=== PATIENT | female | born 1975 | race Caucasian/White ===

== ENCOUNTER 2016-09-11 16:50 | Emergency (ER) | payer MEDICAID ==
[~2016-09-11] VITALS: Ht 160 cm; Wt 95.5 kg
[~2016-09-11 16:50] MED LIST: antibiotic; ibuprofen
[2016-09-11 16:53] VITALS: Ht 160 cm; Wt 95.5 kg
--- NOTE | 2016-09-11 17:39 | ERD ---
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 The patient presents with palpitations today that lasted approximately 30 minutes this morning. She states that she woke up and started to have palpitations. She describes persistent palpitations without chest pain or pleuritic pain or shortness of breath. This lasted approximately 30 minutes and completely resolved. She does note menorrhagia in the past but no history of anemia. She denies any exertional symptoms chest pain or shortness of breath. No fevers or chills, no calf swelling or pain. No abdominal pain nausea vomiting or diarrhea. Complete resolution of symptoms currently. No recent fevers, weight changes weight gain or weight loss. ROS All systems reviewed and are negative except as per history of present illness. Medications Home Meds Discontinued Reported Medications [antibiotic] No Conflict Check 06/04/13 [ibuprofen] No Conflict Check 06/04/13 Allergies Allergies: Coded Allergies: No Known Allergy (Verified , 09/11/16) PMhx/Soc History of Surgery: Yes (c section) Anesthesia Reaction: No Hx Neurological Disorder: No Hx Respiratory Disorders: No Hx Cardiac Disorders: No Hx Psychiatric Problems: No Hx Miscellaneous Medical Probl: Yes (2 MISCARRIAGES) Hx Alcohol Use: No Hx Substance Use: No Hx Tobacco Use: No Smoking Status: Never smoker FmHx Family History: No diabetes Physical Exam Vitals Vital Signs Date Time Temp Pulse Resp B/P Pulse Ox O2 Delivery O2 Flow Rate FiO2 09/11/16 17:14 99.5 09/11/16 16:53 100.1 86 20 123/77 96 Physical Exam General: Well developed, well nourished, no acute distress Head: Normocephalic, atraumatic. Eyes: Pupils equally reactive, EOM intact ENT: Moist mucous membranes Neck: Supple, no lymphadenopathy Respiratory: Lungs clear bilaterally, no distress Cardiovascular: RRR, no murmurs, rubs, or gallops Abdominal: Soft, non-tender, non-distended, no peritoneal signs : Deferred MSK: No edema, no unilateral swelling, 5/5 strength Neurologic: Alert and oriented, moving all extremities, normal speech, no focal weakness, no cerebellar signs Skin: No rash Psych: Normal mood Result Diagram: 09/11/16 2821 Results 24 hrs Laboratory Tests Test 09/11/16 17:25 White Blood Count 12.810^3/ul Red Blood Count 4.3210^6/ul Hemoglobin 11.8g/dl Hematocrit 36.1% Mean Corpuscular Volume 83.6fl Mean Corpuscular Hemoglobin 27.3pg Mean Corpuscular Hemoglobin Concent 32.7g/dl Red Cell Distribution Width 13.7% Platelet Count 63125^3/UL Mean Platelet Volume 9.6fl Neutrophils % 69.1% Lymphocytes % 22.0% Monocytes % 6.6% Eosinophils % 1.6% Basophils % 0.3% Nucleated Red Blood Cells % 0.0/100WBC Neutrophils # 8.910^3/ul Lymphocytes # 2.810^3/ul Monocytes # 0.810^3/ul Eosinophils # 0.210^3/ul Basophils # 0.010^3/ul Nucleated Red Blood Cells # 0.010^3/ul Serum HCG, Qualitative NEGATIVE Procedures/MDM EKG, MONITORS, & DIAGNOSTIC IMAGING: EKG: I reviewed and interpreted a 12-lead EKG. Rhythm: Normal sinus rhythm Ectopy: None Intervals: No abnormalities, normal QRS and QTC, no Brugada ST segments: No elevations or depressions T waves: No contiguous inversions LAB INTERPRETATION: No evidence of anemia or MEDICAL DECISION MAKING: The patient has nonspecific palpitations with complete resolution. The patient is asymptomatic and resting comfortably. The patient meets the PERC RULE out criteria. Thus, less than 2% risk of pulmonary embolism with better alternative diagnosis. No indication for d-dimer or CT pulmonary angiogram at this time. The patient does have a history of menorrhagia will benefit from a CBC to rule out anemia, hCG to rule out . The patient has no chest pain, no pleuritic pain, no exertional symptoms. I do not believe this is consistent with ACS, arrhythmia or thyroid dysfunction. ER COURSE: The patient's laboratory testing and EKG are normal. The patient continues to be asymptomatic and is otherwise well-appearing, outpatient follow-up is appropriate. The patient may require Holter symptoms persist. Outpatient thyroid testing would also be reasonable. I kept the patient and/or family informed of laboratory and diagnostic imaging results throughout the emergency room course. DISPOSITION PLAN: We discussed follow up with the patient's primary care doctor within 24 to 48 hours as needed. We also discussed return to the emergency room for worsening symptoms or worsening condition. Outpatient referral: None required Departure Diagnosis: Primary Impression: Palpitations Condition: KIERA Ware MD Sep 11, 2016 17:39
[2016-09-11 17:41] LABS: BASOPHILS % 0.3 % (0.0-2.0); EOSINOPHILS # 0.2 10^3/ul (0.0-0.5); EOSINOPHILS % 1.6 % (0.0-7.0); HEMATOCRIT 36.1 % (37.0-47.0); HEMOGLOBIN 11.8 g/dl (12.0-16.0); LYMPHOCYTES # 2.8 10^3/ul (0.8-2.9); MEAN CORPUSCULAR HEMOGLOBIN 27.3 pg (29.0-33.0); MEAN CORPUSCULAR HGB CONC 32.7 g/dl (32.0-37.0); MEAN CORPUSCULAR VOLUME 83.6 fl (82.0-101.0); MEAN PLATELET VOLUME 9.6 fl (7.4-10.4); MONOCYTE # 0.8 10^3/ul (0.3-0.9); MONOCYTES % 6.6 % (0.0-11.0); NEUTROPHIL # 8.9 10^3/ul (1.6-7.5); NEUTROPHILS % 69.1 % (39.0-77.0); PLATELET COUNT 292 10^3/UL (140-415); RED BLOOD COUNT 4.32 10^6/ul (4.20-5.40); RED CELL DISTRIBUTION WIDTH 13.7 % (11.5-14.5); WHITE BLOOD COUNT 12.8 10^3/ul (4.8-10.8)
[2016-09-11 18:36] VITALS: BP 120/75; PULSE 74; RESP 18; TEMP 98.9
== END 2016-09-11 18:36 | disposition home or self-care (01) ==
LOC: E/R 16:50
DX: R00.2 Palpitations (principal)
CPT/HCPCS: 84703; 85025; 93005

== ENCOUNTER 2016-11-16 16:37 | Emergency (ER) | payer SELFPAY ==
[~2016-11-16] VITALS: Ht 165.1 cm; Wt 98.5 kg
[2016-11-16 16:40] VITALS: Ht 165.1 cm; Wt 98.5 kg
[2016-11-16] MEDS ORDERED: LIDOCAINE/MYLANTA 40 ML BTL PO STA (19:16)
[2016-11-16] MEDS ORDERED: ONDANSETRON 4 MG INJ IV STA (19:16)
[2016-11-16] MEDS ORDERED: BELLADONNA/PHENOBARBITAL TAB PO STA (19:16)
[2016-11-16] MEDS ORDERED: SOD CHLORIDE 0.9% 1,000 ML IV STA (19:16)
[2016-11-16] MEDS ORDERED: KETOROLAC 15 MG INJ IV STA (19:16)
[2016-11-16 19:38] LABS: BASOPHILS % 0.3 % (0.0-2.0); EOSINOPHILS # 0.4 10^3/ul (0.0-0.5); EOSINOPHILS % 2.6 % (0.0-7.0); HEMATOCRIT 37.4 % (37.0-47.0); HEMOGLOBIN 12.2 g/dl (12.0-16.0); LYMPHOCYTES # 3.5 10^3/ul (0.8-2.9); LYMPHOCYTES % 24.2 % (15.0-51.0); MEAN CORPUSCULAR HEMOGLOBIN 27.4 pg (29.0-33.0); MEAN CORPUSCULAR HGB CONC 32.6 g/dl (32.0-37.0); MEAN PLATELET VOLUME 9.9 fl (7.4-10.4); MONOCYTES % 6.6 % (0.0-11.0); NEUTROPHILS % 65.9 % (39.0-77.0); PLATELET COUNT 305 10^3/UL (140-415); RED BLOOD COUNT 4.45 10^6/ul (4.20-5.40); WHITE BLOOD COUNT 14.6 10^3/ul (4.8-10.8)
[2016-11-16 19:58] LABS: ALANINE AMINOTRANSFERASE 25 IU/L (13-69); ALBUMIN 4.1 g/dl (3.3-4.9); ALBUMIN/GLOBULIN RATIO 1.13; ALKALINE PHOSPHATASE 121 IU/L (42-121); ANION GAP 15 (8-16); ASPARTATE AMINO TRANSFERASE 19 IU/L (15-46); BLOOD UREA NITROGEN 14 mg/dl (7-20); CARBON DIOXIDE 28 mmol/L (21-31); CHLORIDE 101 mmol/L (97-110); CREATININE 0.85 mg/dl (0.44-1.00); GLUCOSE 102 mg/dl (70-220); POTASSIUM 3.7 mmol/L (3.5-5.1); SODIUM 140 mmol/L (135-144); TOTAL PROTEIN 7.7 g/dl (6.1-8.1)
[2016-11-16 20:00] LABS: ADD UMIC YES; UR ASCORBIC ACID NEGATIVE (NEGATIVE); UR BILIRUBIN (Dip) NEGATIVE (NEGATIVE); UR BLOOD (Dip) 1+ mg/dL (NEGATIVE); UR CLARITY SLIGHTLY CLOUDY (CLEAR); UR COLOR YELLOW (YELLOW); UR GLUCOSE (Dip) NEGATIVE (NEGATIVE); UR KETONES (Dip) NEGATIVE (NEGATIVE); UR LEUKOCYTE ESTERASE (Dip) 2+ Leu/ul (NEGATIVE); UR NITRITE (Dip) NEGATIVE (NEGATIVE); UR RBC 5 /HPF (0-5); UR SPECIFIC GRAVITY (Dip) 1.017 (1.003-1.030); UR SQUAMOUS EPITHELIAL CELL FEW /HPF (FEW); UR TOTAL PROTEIN (Dip) NEGATIVE (NEGATIVE); UR UROBILINOGEN (Dip) NEGATIVE (NEGATIVE)
[2016-11-16 20:10] LABS: TROPONIN-I < 0.012 ng/ml (0.00-0.12)
--- NOTE | 2016-11-16 20:15 | RADRPT ---
PROCEDURE: Limited ultrasound of the gallbladder. CLINICAL INDICATION: 41 years of age, female. Abdominal pain. TECHNIQUE: Multiple real-time longitudinal and transverse images of the gallbladder and the bile d ucts were acquired utilizing a curved array transducer. Images were reviewed on a high-resolution [facility] workstation. COMPARISON: None available. FINDINGS: Pancreas: Not well seen due to bowel gas. Liver appearance: Mildly echogenic parenchyma Liver length: 17.7 cm Bile Ducts: No intrahepatic or extrahepatic biliary ductal dilatation. CBD: 0.1 cm. Gallbladder: Normal. Gallbladder wall measures 1.6 mm. Negative for gallstones. Main portal vein is patent with hepatopetal flow. Right kidney length: 9.4 cm. Right kidney appearance: Normal. Other: None. IMPRESSION: Mildly echogenic liver parenchyma may be due to hepatic steatosis. Negative for gallstones or evidence of biliary obstruction. RPTAT: HCTS Physician Horacio Date Time Electronically viewed and signed by Physician Horacio on 11/16/2016 20:14 /
[2016-11-16] MEDS ORDERED: IBUP-1542 PO (20:23)
[2016-11-16] MEDS ORDERED: CEPH-443 PO (20:23)
[2016-11-16 21:03] VITALS: BP 128/77; PULSE 69; RESP 18; TEMP 98.9
--- NOTE | 2016-11-16 21:30 | ERD ---
ER Documentation Chief Complaint Date/Time DATE: 11/16/16 TIME: 21:23 Chief Complaint CP AND UPPER BACK PAIN STARTING TODAY HPI 41-year-old woman complains of right upper quadrant abdominal pain radiating to the back 1 day for about 4 hours. She denies previous episodes. She denies fevers or chills, no blood per rectum, no melena, no chest pain or shortness of breath. Patient denies trauma. Patient denies vaginal discharge. ROS All systems reviewed and are negative except as per history of present illness. Medications Home Meds Active Scripts Ibuprofen* (Ibuprofen*) 600 Mg Tablet, 600 MG PO Q8 for PAIN AND/OR INFLAMMATION , #30 TAB Prov:RAUL ELY MD 11/16/16 Cephalexin* (Keflex*) 500 Mg Capsule, 500 MG PO QID for 7 Days, CAP Prov:RAUL ELY MD 11/16/16 Allergies Allergies: Coded Allergies: No Known Allergy (Verified , 09/11/16) PMhx/Soc Obesity History of Surgery: No Anesthesia Reaction: No Hx Neurological Disorder: No Hx Respiratory Disorders: No Hx Cardiac Disorders: No Hx Psychiatric Problems: No Hx Miscellaneous Medical Probl: No Hx Alcohol Use: No Hx Substance Use: No Hx Tobacco Use: No Smoking Status: Never smoker FmHx Family History: No diabetes Physical Exam Vitals Vital Signs Date Time Temp Pulse Resp B/P Pulse Ox O2 Delivery O2 Flow Rate FiO2 11/16/16 21:03 98.9 69 18 128/77 99 Room Air 11/16/16 16:40 99.1 88 22 136/79 99 Physical Exam GENERAL: Well-developed, well-nourished, well-hydrated, in no apparent distress , looks nontoxic in appearance HEENT: Moist mucous membranes, pink conjunctiva, no cervical spine tenderness or step-off deformities, no goiter, no jaundice or icterus, extraocular movements intact without pain. No submandibular induration, and no pharyngeal erythema NEURO: Alert and oriented 3, cranial nerves II through XII intact bilaterally, pupils equal round reactive to light, no focal deficits or facial asymmetry, sensation intact distally Strength 5/5 in upper and lower extremities bilaterally CARDIAC: Regular rate and rhythm, no murmurs rubs or gallops LUNGS: Clear bilaterally no wheezing crackles or stridor ABDOMEN: Mild right upper quadrant tenderness to touch no guarding or rigidity, no rebound, no psoas sign, no obturator sign SKIN: Warm and dry to touch, no abrasions, contusions, or hematomas, no lacerations, no ecchymosis, no target lesions, and without ulcers EXTREMITIES: No clubbing cyanosis or edema, calves are bilaterally symmetrical, no Homans sign, no popliteal cord sign. Distal pulses equal and bilateral PSYCH: Normal affect without agitation or irritability Result Diagram: 11/16/16191911/16/161919 Results 24 hrs Laboratory Tests Test 11/16/16 19:20 White Blood Count 14.610^3/ul Red Blood Count 4.4510^6/ul Hemoglobin 12.2g/dl Hematocrit 37.4% Mean Corpuscular Volume 84.0fl Mean Corpuscular Hemoglobin 27.4pg Mean Corpuscular Hemoglobin Concent 32.6g/dl Red Cell Distribution Width 14.0% Platelet Count 83678^3/UL Mean Platelet Volume 9.9fl Neutrophils % 65.9% Lymphocytes % 24.2% Monocytes % 6.6% Eosinophils % 2.6% Basophils % 0.3% Nucleated Red Blood Cells % 0.0/100WBC Neutrophils # (Manual) 9.610^3/ul Lymphocytes # 3.510^3/ul Monocytes # 1.010^3/ul Eosinophils # 0.410^3/ul Basophils # 0.010^3/ul Nucleated Red Blood Cells # 0.010^3/ul Urine Color YELLOW Urine Clarity SLIGHTLY CLOUDY Urine pH 5.0 Urine Specific [place] 1.017 Urine Ketones NEGATIVEmg/dL Urine Nitrite NEGATIVEmg/dL Urine Bilirubin NEGATIVEmg/dL Urine Urobilinogen NEGATIVEmg/dL Urine Leukocyte Esterase 2+[place]/ul Urine Microscopic RBC 5/HPF Urine Microscopic WBC 21/HPF Urine Squamous Epithelial Cells FEW/HPF Urine Hemoglobin 1+mg/dL Urine Glucose NEGATIVEmg/dL Urine Total Protein NEGATIVEmg/dl Sodium Level 140mmol/L Potassium Level 3.7mmol/L Chloride Level 101mmol/L Carbon Dioxide Level 28mmol/L Anion Gap 15 Blood Urea Nitrogen 14mg/dl Creatinine 0.85mg/dl Glucose Level 102mg/dl Calcium Level 9.0mg/dl Total Bilirubin 0.0mg/dl Direct Bilirubin 0.00mg/dl Indirect Bilirubin 0.0mg/dl Aspartate Amino Transf (AST/SGOT) 19IU/L Alanine Aminotransferase (ALT/SGPT) 25IU/L Alkaline Phosphatase 121IU/L Troponin I < 0.012ng/ml Total Protein 7.7g/dl Albumin 4.1g/dl Globulin 3.60g/dl Albumin/Globulin Ratio 1.13 Lipase 73U/L Current Medications Medications (Trade) Dose Ordered Sig/Koko Route PRN Reason Start Time Stop Time Status Last Admin Dose Admin Sodium Chloride (NS) 1,000 ml @ 1,000 mls/hr Q1H STAT IV 11/16/16 19:16 11/16/16 20:15 DC 11/16/16 20:04 Ondansetron HCl (Zofran Inj) 4 mg ONCE STAT IV 11/16/16 19:16 11/16/16 19:17 DC 11/16/16 20:03 Miscellaneous Medication (Gi Cocktail (2)) 40 ml ONCE STAT PO 11/16/16 19:16 11/16/16 19:17 DC 11/16/16 20:03 Belladonna/ Phenobarbital () 2 tab ONCE STAT PO 11/16/16 19:16 11/16/16 19:17 DC 11/16/16 20:03 Ketorolac Tromethamine (Toradol) 15 mg ONCE STAT IV 11/16/16 19:16 11/16/16 19:17 DC 11/16/16 20:04 Procedures/MDM IV line was established patient was placed on outdoor adventure [employer] rhythm strip revealed a sinus rhythm at about 80 bpm with upright P and T waves. Patient was afebrile. EKG performed, read by me: 87 bpm, normal sinus rhythm, normal axis, no acute ST segment changes, narrow QRS complex, with good R-wave progression in precordial leads. Gallbladder ultrasound was performed, no acute cholecystitis or cholelithiasis was noted. Please refer to radiologist dictation for full report. I administered 1 L normal saline intravenously, Toradol 15 mg IV, GI cocktail 30 cc p.o., Zofran 4 mg IV with good response. CBC reveals a leukocytosis of 15, electrolytes normal, liver function tests normal, troponin negative. Urinalysis was consistent with a urinary tract infection. Abdominal examination was repeated by me and she has no further tenderness to touch and remains without guarding or rigidity. Patient's workup here was fairly unremarkable although she does have a UTI and will be treated as an outpatient with oral antibiotics. Given her right upper quadrant abdominal pain today I did tell her return in 8 hours for repeat abdominal examination and reevaluation or earlier if she develops worsening pain, fever, vomiting. Differential diagnoses considered, included but not limited to acute coronary syndrome, pulmonary embolism, aortic dissection, abdominal aortic aneurysm, sepsis, stroke, meningitis, encephalitis, pneumonia, appendicitis, cholecystitis , bowel obstruction, pyelonephritis, nephrolithiasis, cystitis, as well as metabolic, hematologic, and electrolyte abnormalities. As well as abscess, cellulitis, fractures, and dislocations. Patient feels much better at this time, and vital signs are normal, symptoms have improved. I did give strict instructions to return to the ED if symptoms continue or worsen, patient will otherwise follow-up with primary care physician. Patient understood instructions and agreed to plan. Disclaimer: Inadvertent spelling and grammatical errors are likely due to EHR/ dictation software use and do not reflect on the overall quality of patient care. Also, please note that the electronic time recorded on this note does not necessarily reflect the actual time of the patient encounter. Departure Diagnosis: Primary Impression: UTI (urinary tract infection) Urinary tract infection type: acute cystitis Hematuria presence: without hematuria Qualified Code: N30.00 - Acute cystitis without hematuria Additional Impression: Abdominal pain Abdominal location: right upper quadrant Qualified Code: R10.11 - Right upper quadrant abdominal pain Condition: Good Patient Instructions: Bladder Infection, Female (Adult) RAUL ELY MD Nov 16, 2016 21:30
== END 2016-11-16 21:04 | disposition home or self-care (01) ==
LOC: E/R 16:37
DX: N30.00 Acute cystitis without hematuria (principal)
CPT/HCPCS: 36415; 76705; 80053; 81001; 83690; 84484; 85025; 93005; 96374; 96375; 99285; J1885; J2405; J7030

== ENCOUNTER 2017-01-14 01:13 | Emergency (ER) | payer SELFPAY ==
[~2017-01-14] VITALS: Ht 160 cm; Wt 96.7 kg
[~2017-01-14 01:13] MED LIST changes: +CEPH-443 PO; +IBUP-1542 PO; -antibiotic; -ibuprofen
[2017-01-14 01:16] VITALS: Ht 160 cm; Wt 96.7 kg
[2017-01-14] MEDS ORDERED: morphine 4 MG/ML VIAL IM STA (02:00)
[2017-01-14] MEDS ORDERED: ONDANSETRON (ODT) 4 MG TAB ODT STA (02:00)
[2017-01-14] MEDS ORDERED: IBUPROFEN 600 MG TAB PO ONE (02:00)
--- NOTE | 2017-01-14 03:08 | RADRPT ---
PROCEDURE: CT thoracic spine without contrast. CLINICAL INDICATION: Back pain. TECHNIQUE: CT scan of the thoracic spine was performed on a multi-detector high-resolution CT [facility]. Contiguous axial images were obtained without intravenous contrast. Coronal and sagittal ref ormatted images were also obtained. Images were reviewed on the PACS workstation. One or more of the following dose reduction techniques were used: - Automated exposure control. - Adjustment of the mA and/or kV according to patient size. - Use of iterative reconstruction technique. Exam CTD/vol = 30.10 mGy. Total exam DLP = 1261.65 mGy-cm. COMPARISON: None. FINDINGS: There is no acute fracture or subluxation. Thoracic vertebral body heights and alignment are otherw ise within normal limits. Intervertebral disk spaces are within normal limits. There is no central canal or neural foraminal stenosis. There is no paraspinal mass or collection. IMPRESSION: No acute fracture or subluxation. .Manuel Guaman MD, MD Date Time Electronically viewed and signed by .Manuel Guaman MD, MD on 01/14/2017 03:07 .T/
--- NOTE | 2017-01-14 03:08 | RADRPT ---
PROCEDURE: CT thoracic spine without contrast. CLINICAL INDICATION: Back pain. TECHNIQUE: CT scan of the thoracic spine was performed on a multi-detector high-resolution CT [facility]. Contiguous axial images were obtained without intravenous contrast. Coronal and sagittal ref ormatted images were also obtained. Images were reviewed on the PACS workstation. One or more of the following dose reduction techniques were used: - Automated exposure control. - Adjustment of the mA and/or kV according to patient size. - Use of iterative reconstruction technique. Exam CTD/vol = 30.10 mGy. Total exam DLP = 1261.65 mGy-cm. COMPARISON: None. FINDINGS: There is no acute fracture or subluxation. Thoracic vertebral body heights and alignment are otherw ise within normal limits. Intervertebral disk spaces are within normal limits. There is no central canal or neural foraminal stenosis. There is no paraspinal mass or collection. IMPRESSION: No acute fracture or subluxation. .Manuel Guaman MD, MD Date Time Electronically viewed and signed by .Manuel Guaman MD, MD on 01/14/2017 03:07 .T/
[2017-01-14] MEDS ORDERED: TRAM50TA2 PO (03:25)
[2017-01-14] MEDS ORDERED: ORPH100T PO (03:25)
[2017-01-14] MEDS ORDERED: IBUP-1542 PO (03:25)
--- NOTE | 2017-01-14 03:43 | ERD ---
ER Documentation Chief Complaint Chief Complaint upper back pain on/off x 2 mos worse today HPI This Is a 41-year-old female presents to the ER with mid back pain has been going on over the last 2 months. Patient states that back pain is severe and she feels as if her back is going to split open. Patient has been to her PCP and to the ER for this, however they are unable to find what is wrong with her. Patient denies any trauma she denies any heavy lifting. Patient states that she tried gabapentin however it does not work. Patient denies any fevers or chills. She denies any chest pain, shortness of breath or abdominal pain. ROS 12 point review of systems was done, all negative except per HPI. Medications Home Meds Active Scripts Orphenadrine Citrate (Norflex) 100 Mg Tablet.sa, 100 MG PO BID for 5 Days, TAB.SA Prov:ANTON LUNA 01/14/17 Ibuprofen* (Ibuprofen*) 600 Mg Tablet, 600 MG PO Q6 for 5 Days, TAB Prov:ANTON LUNA 01/14/17 Tramadol HCl (Tramadol HCl) 50 Mg Tablet, 50 MG PO Q4 Y for PAIN, #20 TAB Prov:ANTON LUNA 01/14/17 Ibuprofen* (Ibuprofen*) 600 Mg Tablet, 600 MG PO Q8 for PAIN AND/OR INFLAMMATION , #30 TAB Prov:RAUL ELY MD 11/16/16 Cephalexin* (Keflex*) 500 Mg Capsule, 500 MG PO QID for 7 Days, CAP Prov:RAUL ELY MD 11/16/16 Allergies Allergies: Coded Allergies: No Known Allergy (Verified , 09/11/16) PMhx/Soc Medical and Surgical Hx: pt denies Medical Hx History of Surgery: Yes (APPENDECTOMY) Anesthesia Reaction: No Hx Neurological Disorder: No Hx Respiratory Disorders: No Hx Cardiac Disorders: No Hx Psychiatric Problems: No Hx Miscellaneous Medical Probl: No Hx Alcohol Use: No Hx Substance Use: No Hx Tobacco Use: No Smoking Status: Never smoker Physical Exam Vitals Vital Signs Date Time Temp Pulse Resp B/P Pulse Ox O2 Delivery O2 Flow Rate FiO2 01/14/17 01:16 98.6 76 20 132/88 98 Physical Exam GENERAL: patient is crying secondary to pain CHEST: Clear to auscultation bilaterally. There are no rales, wheezes or rhonchi. HEART: Regular rate and rhythm. No murmurs, clicks, rubs or gallops. ABDOMEN: Soft, nontender and nondistended. Good bowel sounds. No rebound or guarding. No gross peritonitis. No gross organomegaly or masses. No Berrios sign or McBurney point tenderness. No pulsatile abdominal mass. BACK: No midline or flank tenderness. Tender to palpation from T6-T8. Tense paraspinal muscles. Negative leg raise test. No step- offs. EXTREMITIES: . Full range of motion. Grossly neurovascularly intact. NEURO: Alert and oriented. Results 24 hrs Current Medications Medications (Trade) Dose Ordered Sig/Koko Route PRN Reason Start Time Stop Time Status Last Admin Dose Admin Morphine Sulfate (morphine) 4 mg ONCE STAT IM 01/14/17 02:00 01/14/17 02:02 DC 01/14/17 02:08 Ibuprofen (Motrin) 600 mg ONCE ONCE PO 01/14/17 02:00 01/14/17 02:02 DC 01/14/17 02:08 Ondansetron HCl (Zofran Odt) 4 mg ONCE STAT ODT 01/14/17 02:00 01/14/17 02:02 DC 01/14/17 02:08 [place] [id number] Radiology Main Line: [phone] DIAGNOSTIC IMAGING REPORT Patient: LESTER CM : 1975 Age: 41 Sex: F MR #: [id number] DOS: 01/14/17 0000 Ordering MD: ANTON LUNA PA-C Location: [facility] Room/Bed: PROCEDURE: CT thoracic spine without contrast. CLINICAL INDICATION: Back pain. TECHNIQUE: CT scan of the thoracic spine was performed on a multi-detector high-resolution CT scanner. Contiguous axial images were obtained without intravenous contrast. Coronal and sagittal reformatted images were also obtained. Images were reviewed on the PACS workstation. One or more of the following dose reduction techniques were used: - Automated exposure control. - Adjustment of the mA and/or kV according to patient size. - Use of iterative reconstruction technique. Exam CTD/vol = 30.10 mGy. Total exam DLP = 1261.65 mGy-cm. COMPARISON: None. FINDINGS: There is no acute fracture or subluxation. Thoracic vertebral body heights and alignment are otherwise within normal limits. Intervertebral disk spaces are within normal limits. There is no central canal or neural foraminal stenosis. There is no paraspinal mass or collection. IMPRESSION: No acute fracture or subluxation. .Manuel Guaman MD, Date Time Electronically viewed and signed by .Manuel Guaman MD, on 01/14/2017 03:07 .T/ CC: ANTON LUNA Procedures/[facility] This is a 41-year-old female presents to the ER with a 2 month history of mid back pain. CT imaging was done, as patient stated she already had an x-ray which was normal, there is no evidence of masses, stenosis or bulging discs. She is afebrile and well-appearing suspicion for discitis or abscess is low. This patient for AAA, dissection is low. Patient does not have any pulsatile masses or abdominal pain. Her vital signs are stable, and her pain was completely controlled in the ER with 4 mg of morphine bupropion. Patient stated that she felt a lot better and was on any more pain upon discharge. I advised patient to follow-up with her primary care doctor to see an orthopedic doctor as soon as possible. I advised weight loss patient is obese, and this may be contributing to her back pain. I shared my medical decision making with the patient she understands and agrees with plan Departure Diagnosis: Primary Impression: Back pain Condition: Stable Patient Instructions: Back Pain (Acute Or Chronic) Additional Instructions: Llame al doctor MAANA y lissa abhi ELIER PARA DENTRO DE 1-2 COLLINS.Dgale a la secretaria que nosotros le instruimos hacer esta elier.Avise o llame si calabrese condicin se empeora antes de la elier. Regresa aqui si peor o no mejor. ANTON LUNA Jan 14, 2017 03:43
--- NOTE | 2017-01-14 03:43 | ERD ---
ER Documentation Chief Complaint Chief Complaint upper back pain on/off x 2 mos worse today HPI This Is a 41-year-old female presents to the ER with mid back pain has been going on over the last 2 months. Patient states that back pain is severe and she feels as if her back is going to split open. Patient has been to her PCP and to the ER for this, however they are unable to find what is wrong with her. Patient denies any trauma she denies any heavy lifting. Patient states that she tried gabapentin however it does not work. Patient denies any fevers or chills. She denies any chest pain, shortness of breath or abdominal pain. ROS 12 point review of systems was done, all negative except per HPI. Medications Home Meds Active Scripts Orphenadrine Citrate (Norflex) 100 Mg Tablet.sa, 100 MG PO BID for 5 Days, TAB.SA Prov:ANTON LUNA 01/14/17 Ibuprofen* (Ibuprofen*) 600 Mg Tablet, 600 MG PO Q6 for 5 Days, TAB Prov:ANTON LUNA 01/14/17 Tramadol HCl (Tramadol HCl) 50 Mg Tablet, 50 MG PO Q4 Y for PAIN, #20 TAB Prov:ANTON LUNA 01/14/17 Ibuprofen* (Ibuprofen*) 600 Mg Tablet, 600 MG PO Q8 for PAIN AND/OR INFLAMMATION , #30 TAB Prov:RAUL ELY MD 11/16/16 Cephalexin* (Keflex*) 500 Mg Capsule, 500 MG PO QID for 7 Days, CAP Prov:RAUL ELY MD 11/16/16 Allergies Allergies: Coded Allergies: No Known Allergy (Verified , 09/11/16) PMhx/Soc Medical and Surgical Hx: pt denies Medical Hx History of Surgery: Yes (APPENDECTOMY) Anesthesia Reaction: No Hx Neurological Disorder: No Hx Respiratory Disorders: No Hx Cardiac Disorders: No Hx Psychiatric Problems: No Hx Miscellaneous Medical Probl: No Hx Alcohol Use: No Hx Substance Use: No Hx Tobacco Use: No Smoking Status: Never smoker Physical Exam Vitals Vital Signs Date Time Temp Pulse Resp B/P Pulse Ox O2 Delivery O2 Flow Rate FiO2 01/14/17 01:16 98.6 76 20 132/88 98 Physical Exam GENERAL: patient is crying secondary to pain CHEST: Clear to auscultation bilaterally. There are no rales, wheezes or rhonchi. HEART: Regular rate and rhythm. No murmurs, clicks, rubs or gallops. ABDOMEN: Soft, nontender and nondistended. Good bowel sounds. No rebound or guarding. No gross peritonitis. No gross organomegaly or masses. No Berrios sign or McBurney point tenderness. No pulsatile abdominal mass. BACK: No midline or flank tenderness. Tender to palpation from T6-T8. Tense paraspinal muscles. Negative leg raise test. No step- offs. EXTREMITIES: . Full range of motion. Grossly neurovascularly intact. NEURO: Alert and oriented. Results 24 hrs Current Medications Medications (Trade) Dose Ordered Sig/Koko Route PRN Reason Start Time Stop Time Status Last Admin Dose Admin Morphine Sulfate (morphine) 4 mg ONCE STAT IM 01/14/17 02:00 01/14/17 02:02 DC 01/14/17 02:08 Ibuprofen (Motrin) 600 mg ONCE ONCE PO 01/14/17 02:00 01/14/17 02:02 DC 01/14/17 02:08 Ondansetron HCl (Zofran Odt) 4 mg ONCE STAT ODT 01/14/17 02:00 01/14/17 02:02 DC 01/14/17 02:08 [place] [id number] Radiology Main Line: [phone] DIAGNOSTIC IMAGING REPORT Patient: LESTER CM : 1975 Age: 41 Sex: F MR #: [id number] DOS: 01/14/17 0000 Ordering MD: ANTON LUNA PA-C Location: [facility] Room/Bed: PROCEDURE: CT thoracic spine without contrast. CLINICAL INDICATION: Back pain. TECHNIQUE: CT scan of the thoracic spine was performed on a multi-detector high-resolution CT scanner. Contiguous axial images were obtained without intravenous contrast. Coronal and sagittal reformatted images were also obtained. Images were reviewed on the PACS workstation. One or more of the following dose reduction techniques were used: - Automated exposure control. - Adjustment of the mA and/or kV according to patient size. - Use of iterative reconstruction technique. Exam CTD/vol = 30.10 mGy. Total exam DLP = 1261.65 mGy-cm. COMPARISON: None. FINDINGS: There is no acute fracture or subluxation. Thoracic vertebral body heights and alignment are otherwise within normal limits. Intervertebral disk spaces are within normal limits. There is no central canal or neural foraminal stenosis. There is no paraspinal mass or collection. IMPRESSION: No acute fracture or subluxation. .Manuel Guaman MD, Date Time Electronically viewed and signed by .Manuel Guaman MD, on 01/14/2017 03:07 .T/ CC: ANTON LUNA Procedures/[facility] This is a 41-year-old female presents to the ER with a 2 month history of mid back pain. CT imaging was done, as patient stated she already had an x-ray which was normal, there is no evidence of masses, stenosis or bulging discs. She is afebrile and well-appearing suspicion for discitis or abscess is low. This patient for AAA, dissection is low. Patient does not have any pulsatile masses or abdominal pain. Her vital signs are stable, and her pain was completely controlled in the ER with 4 mg of morphine bupropion. Patient stated that she felt a lot better and was on any more pain upon discharge. I advised patient to follow-up with her primary care doctor to see an orthopedic doctor as soon as possible. I advised weight loss patient is obese, and this may be contributing to her back pain. I shared my medical decision making with the patient she understands and agrees with plan Departure Diagnosis: Primary Impression: Back pain Condition: Stable Patient Instructions: Back Pain (Acute Or Chronic) Additional Instructions: Llame al doctor MAANA y lissa abhi ELIER PARA DENTRO DE 1-2 COLLINS.Dgale a la secretaria que nosotros le instruimos hacer esta elier.Avise o llame si calabrese condicin se empeora antes de la elier. Regresa aqui si peor o no mejor. ANTON LUNA Jan 14, 2017 03:43
[2017-01-14 04:18] VITALS: BP 122/67; PULSE 75; RESP 16; TEMP 99.1
== END 2017-01-14 04:23 | disposition home or self-care (01) ==
LOC: FTE 01:13
DX: M54.6 Pain in thoracic spine (principal)
CPT/HCPCS: 72128; 96372; 99285; J2270

== ENCOUNTER 2017-02-06 02:05 | Emergency (ER) | payer MEDICAID ==
[~2017-02-06] VITALS: Ht 162.6 cm; Wt 96.5 kg
[~2017-02-06 02:05] MED LIST changes: +ORPH100T PO; +TRAM50TA2 PO
[2017-02-06 02:07] VITALS: Ht 162.6 cm; Wt 96.5 kg
[2017-02-06] MEDS ORDERED: HYDR-902 PO (04:36)
[2017-02-06] MEDS ORDERED: METH750T93 PO (04:36)
[2017-02-06] MEDS ORDERED: IBUP800T25 PO (04:36)
--- NOTE | 2017-02-06 04:40 | ERD ---
ER Documentation Chief Complaint Chief Complaint back pain x 2 days, denies injury HPI This is a 41-year-old female complains of thoracic spine pain for the past 2 months. The patient's was seen here on January 14 and had a CAT scan of her thoracic spine which did not show any abnormality. Patient denies any trauma numbness or weakness. She was given a prescription for tramadol which she says is not helping. ROS All systems reviewed and are negative except as per history of present illness. Medications Home Meds Active Scripts Hydrocodone/Acetaminophen (Fonda 10-325 Tablet) 1 Each Tablet, 1 TAB PO Q6H Y for PAIN, #20 TAB Prov:RHONAKKOSJINASTOLOS A. DO 02/06/17 Methocarbamol* (Robaxin*) 750 Mg Tablet, 750 MG PO TID, #30 TAB Prov:LEKKOSJINASTOLOS A. DO 02/06/17 Ibuprofen* (Motrin*) 800 Mg Tab, 800 MG PO Q6H Y for PAIN AND OR ELEVATED TEMP, #30 TAB Prov:LEKKOSAPOSTOLOS A. DO 02/06/17 Orphenadrine Citrate (Norflex) 100 Mg Tablet.sa, 100 MG PO BID for 5 Days, TAB.SA Prov:ANTON LUNA 01/14/17 Ibuprofen* (Ibuprofen*) 600 Mg Tablet, 600 MG PO Q6 for 5 Days, TAB Prov:ANTON LUNA C 01/14/17 Tramadol HCl (Tramadol HCl) 50 Mg Tablet, 50 MG PO Q4 Y for PAIN, #20 TAB Prov:ANTON LUNA 01/14/17 Ibuprofen* (Ibuprofen*) 600 Mg Tablet, 600 MG PO Q8 for PAIN AND/OR INFLAMMATION , #30 TAB Prov:RAUL ELY MD 11/16/16 Cephalexin* (Keflex*) 500 Mg Capsule, 500 MG PO QID for 7 Days, CAP Prov:RAUL ELY MD 11/16/16 Allergies Allergies: Coded Allergies: No Known Allergy (Verified , 09/11/16) PMhx/Soc Medical and Surgical Hx: pt denies Medical Hx History of Surgery: Yes (APPENDECTOMY) Anesthesia Reaction: No Hx Neurological Disorder: No Hx Respiratory Disorders: No Hx Cardiac Disorders: No Hx Psychiatric Problems: No Hx Miscellaneous Medical Probl: No Hx Alcohol Use: No Hx Substance Use: No Hx Tobacco Use: No Smoking Status: Never smoker FmHx Family History: No coronary disease Physical Exam Vitals Vital Signs Date Time Temp Pulse Resp B/P Pulse Ox O2 Delivery O2 Flow Rate FiO2 02/06/17 02:07 98.1 80 20 130/72 99 Physical Exam Const: Well-developed, well-nourished Head: Atraumatic, normocephalic Eyes: Normal Conjunctiva, PERRLA, EOMI, normal sclera, no nystagmus ENT: Normal External Ears, Nose and Mouth, moist mucus membranes. Neck: Full range of motion. No meningismus, no lymphadenopathy. Resp: Clear to auscultation bilaterally, no wheezing, rhonchi, rales Cardio: Regular rate and rhythm, no murmurs, S1 S2 present Abd: Soft, non tender x 4, non distended. Normal bowel sounds, no guarding or rebound, no pulsitile abdominal masses or bruits Skin: No petechiae or rashes, no ecchymosis , no maculopapular rash Back: No midline or flank tenderness, there is bilateral thoracic paraspinal muscle spasm and tenderness Ext: No cyanosis, or edema, FROM x 4, normal inspection, neurovascularly intact x 4 Neur: Awake and alert, STR 5/5 x 4, sensation intact x 4, no focal findings, cerebellum intact Psych: Normal Mood and Affect Procedures/MDM Patient says she is scheduled for MRI of thoracic spine. She has no focal neurological complaints. The patient has a hunched over stance which I feels grading stress in the thoracic region. She also has pendulous breasts which can also cause thoracic pain Departure Diagnosis: Primary Impression: Back pain Back pain location: thoracic back pain Chronicity: chronic Back pain laterality: bilateral Qualified Code: M54.6 - Chronic bilateral thoracic back pain Condition: Stable Patient Instructions: Back Pain (Acute Or Chronic) Referrals: NO PRIMARY,CARE PHYSICIAN (PCP) YUILSSA BRAGA DO Feb 06, 2017 04:40
== END 2017-02-06 04:51 | disposition home or self-care (01) ==
LOC: FTE 02:05
DX: M54.6 Pain in thoracic spine (principal)
CPT/HCPCS: 99284

== ENCOUNTER 2017-05-08 23:56 | Emergency (ER) | END 2017-05-09 01:26 | disposition home or self-care (01) ==

== ENCOUNTER 2017-06-22 02:53 | Emergency (ER) | END 2017-06-22 08:00 | disposition home or self-care (01) ==

== ENCOUNTER 2018-01-01 12:35 | Emergency (ER) | END 2018-01-01 15:06 | disposition home or self-care (01) ==

== ENCOUNTER 2018-01-08 09:14 | Emergency (ER) | END 2018-01-08 11:12 | disposition home or self-care (01) ==

== ENCOUNTER 2018-02-15 00:30 | Emergency (ER) | END 2018-02-15 01:13 | disposition home or self-care (01) ==